=== PATIENT | female | born 1995 | race Two or more races ===

== ENCOUNTER 2017-04-10 10:04 | Emergency (ER) | payer MEDICAID ==
[~2017-04-10] VITALS: Ht 177.8 cm; Wt 109.0 kg
[2017-04-10 10:06] VITALS: BP 122/76
[2017-04-10] MEDS ORDERED: PHENAZOPYRIDINE 200 MG TABLET ONE (10:44)
[2017-04-10 10:45] LABS: HCG UR LOT HCG7060132
[2017-04-10] MEDS ORDERED: PHENAZOPYRIDINE 200 MG TABLET PO ONE (11:00)
[2017-04-10 11:01] LABS: HCG UR OBC PASS
== END 2017-04-10 12:07 | disposition home or self-care (01) ==
LOC: ED 12:01
DX: Z32.01 Encounter for pregnancy test, result positive (principal); N30.90 Cystitis, unspecified without hematuria
CPT/HCPCS: 81001; 81025; 99284

== ENCOUNTER 2017-04-18 07:31 | Emergency (ER) | payer MEDICAID ==
[~2017-04-18] VITALS: Ht 177.8 cm; Wt 108.5 kg
[2017-04-18] MEDS ORDERED: SODIUM CHLORIDE 0.9% 1,000ML IVBOLUS ONE (08:00)
[2017-04-18] MEDS ORDERED: SODIUM CHLORIDE FLUSH 10ML SYR IVF ONE (08:00)
[2017-04-18] MEDS ORDERED: ONDANSETRON 2MG/ML, 2ML IVPush ONE (08:00)
[2017-04-18] MEDS ORDERED: FAMOTIDINE 20 MG/2 ML IVP ONE (08:00)
[2017-04-18] MEDS ORDERED: ONDA4TAB10 PO (08:05)
[2017-04-18 08:14] LABS: BASOPHILS # (AUTO) 0.01 x10^3/uL (0-0.3); BASOPHILS % (AUTO) 0 % (0-1); EOSINOPHILS # (AUTO) 0.02 x10^3/uL (0-0.8); EOSINOPHILS % (AUTO) 0 % (1-7); LYMPHOCYTES # (AUTO) 0.96 x10^3/uL (1-6.1); LYMPHOCYTES % (AUTO) 9 % (22-44); MD NO; MEAN CORPUSCULAR HEMOGLOBIN 27.9 pg (27.0-34.8); MEAN CORPUSCULAR VOLUME 82.1 fL (80-100); MEAN PLATELET VOLUME 8.9 fL (7.4-10.4); MONOCYTES # (AUTO) 0.37 x10^3/uL (0-1.4); MONOCYTES % (AUTO) 3 % (2-9); NEUTROPHILS # (AUTO) 9.75 x10^3/uL (1.8-8.0); NEUTROPHILS % (AUTO) 88 % (42-75); PLATELET COUNT 192 x10^3/uL (130-400); RED BLOOD COUNT 4.43 x10^6/uL (3.82-5.3); RED CELL DISTRIBUTION WIDTH 13.7 % (9.6-15.2)
[2017-04-18 08:23] LABS: ALANINE AMINOTRANSFERASE 19 U/L (12-78); ALBUMIN 3.3 g/dL (3.4-5.0); ANION GAP 6 mmol/L (5-15); CALCIUM 8.9 mg/dL (8.5-10.1); CHLORIDE 108 mmol/L (98-107); CREATININE 0.46 mg/dL (0.55-1.02)
[2017-04-18 08:40] LABS: ALKALINE PHOSPHATASE 48 U/L (45-117); BILIRUBIN,TOTAL 0.6 mg/dL (0.2-1.0); TOTAL PROTEIN 7.7 g/dL (6.4-8.2)
[2017-04-18] MEDS ORDERED: METOCLOPRAMIDE 5 MG/ML, 2ML ONE (09:13)
[2017-04-18] MEDS ORDERED: ONDANSETRON 2MG/ML, 2ML ONE (09:14)
[2017-04-18] MEDS ORDERED: FAMOTIDINE 20 MG/2 ML ONE (09:34)
[2017-04-18 09:43] LABS: MICROSCOPIC INDICATED
[2017-04-18 10:03] LABS: CULTURE INDICATED? YES
[2017-04-18 10:12] VITALS: BP 117/62
== END 2017-04-18 10:16 | disposition home or self-care (01) ==
LOC: ED 08:15
DX: O26.611 Liver and biliary tract disorders in pregnancy, first trimester (principal); K80.20 Calculus of gallbladder without cholecystitis without obstruction; O99.331 Smoking (tobacco) complicating pregnancy, first trimester; F17.210 Nicotine dependence, cigarettes, uncomplicated; Z3A.12 12 weeks gestation of pregnancy
CPT/HCPCS: 36415; 76700; 76801; 80053; 81001; 83690; 84702; 85025; 87086; 96361; 96374; 96375; 99285; J2405; J7030; S0028

== ENCOUNTER 2017-04-21 01:02 | Emergency (ER) | payer MEDICAID ==
[~2017-04-21] VITALS: Ht 175.3 cm; Wt 108.0 kg
[~2017-04-21 01:02] MED LIST: ONDA4TAB10 PO
[2017-04-21 01:04] VITALS: BP 134/78
[2017-04-21 04:38] LABS: RAPID INFLUENZA A Negative (Negative); RAPID INFLUENZA B Negative (Negative)
[2017-04-21 04:39] LABS: MICROSCOPIC NOT IND
[2017-04-21 04:41] LABS: CULTURE INDICATED? NO
== END 2017-04-21 06:08 | disposition home or self-care (01) ==
LOC: ED 05:57
DX: O26.891 Other specified pregnancy related conditions, first trimester (principal); R10.84 Generalized abdominal pain; R05 Cough; O99.351 Diseases of the nervous system complicating pregnancy, first trimester; G62.9 Polyneuropathy, unspecified; Z3A.13 13 weeks gestation of pregnancy; Z87.19 Personal history of other diseases of the digestive system
CPT/HCPCS: 71045; 81003; 87081; 87147; 87400; 87880

== ENCOUNTER 2017-05-14 00:11 | Emergency (ER) | payer MEDICAID ==
[~2017-05-14] VITALS: Ht 175.3 cm; Wt 110.9 kg
[2017-05-14 01:32] VITALS: BP 120/48
[2017-05-14 01:45] LABS: CLUE CELLS NONE SEEN (NONE SEEN); WET PREP WBCS FEW (FEW)
[2017-05-14 02:25] LABS: MICROSCOPIC AUTO
[2017-05-14 02:26] LABS: CULTURE INDICATED? YES
== END 2017-05-14 02:55 | disposition home or self-care (01) ==
LOC: ED 00:34
DX: O23.592 Infection of other part of genital tract in pregnancy, second trimester (principal); O26.892 Other specified pregnancy related conditions, second trimester; O99.332 Smoking (tobacco) complicating pregnancy, second trimester; G62.9 Polyneuropathy, unspecified; Z3A.15 15 weeks gestation of pregnancy
CPT/HCPCS: 81001; 87086; 87106; 87210; 87808; 99284

== ENCOUNTER 2017-06-09 17:44 | Emergency (ER) | payer MEDICAID ==
[~2017-06-09] VITALS: Ht 175.3 cm; Wt 116.1 kg
[2017-06-09 18:48] LABS: MICROSCOPIC INDICATED
[2017-06-09 18:49] LABS: BASOPHILS % (AUTO) 0 % (0-1); EOSINOPHILS # (AUTO) 0.03 x10^3/uL (0-0.8); EOSINOPHILS % (AUTO) 0 % (1-7); LYMPHOCYTES # (AUTO) 1.16 x10^3/uL (1-6.1); LYMPHOCYTES % (AUTO) 7 % (22-44); MD NO; MEAN CORPUSCULAR HEMOGLOBIN 27.9 pg (27.0-34.8); MEAN CORPUSCULAR VOLUME 82.3 fL (80-100); MONOCYTES # (AUTO) 0.63 x10^3/uL (0-1.4); MONOCYTES % (AUTO) 4 % (2-9); NEUTROPHILS # (AUTO) 15.16 x10^3/uL (1.8-8.0); NEUTROPHILS % (AUTO) 89 % (42-75); PLATELET COUNT 212 x10^3/uL (130-400); RED BLOOD COUNT 3.94 x10^6/uL (3.82-5.3); RED CELL DISTRIBUTION WIDTH 13.1 % (9.6-15.2)
[2017-06-09 18:59] LABS: ALANINE AMINOTRANSFERASE 11 U/L (12-78); ANION GAP 6 mmol/L (5-15); CALCIUM 8.3 mg/dL (8.5-10.1); CHLORIDE 106 mmol/L (98-107); CREATININE 0.57 mg/dL (0.55-1.02)
[2017-06-09 19:00] LABS: CULTURE INDICATED? YES
[2017-06-09 19:05] LABS: ALKALINE PHOSPHATASE 54 U/L (45-117); BILIRUBIN,TOTAL 0.3 mg/dL (0.2-1.0); TOTAL PROTEIN 7.5 g/dL (6.4-8.2)
[2017-06-09 19:06] LABS: BILIRUBIN, DIRECT < 0.1 mg/dL (0.1-0.2); BILIRUBIN,INDIRECT 0.2 mg/dL (0.0-2.0)
[2017-06-09] MEDS ORDERED: CEFTRIAXONE PMX 1GM/50ML 50 ML IV ONE (19:30)
[2017-06-09] MEDS ORDERED: SODIUM CHLORIDE 0.9% 1,000ML IVBOLUS ONE (19:30)
[2017-06-09] MEDS ORDERED: ONDANSETRON 2MG/ML, 2ML ONE (19:35)
[2017-06-09] MEDS ORDERED: MORPHINE SULFATE 4 MG/ML, 1ML ONE (19:35)
[2017-06-09] MEDS ORDERED: CEFTRIAXONE PMX 1GM/50ML 50 ML ONE (19:44)
[2017-06-09] MEDS ORDERED: MORPHINE SULFATE 4 MG/ML, 1ML IVPush ONE (20:00)
[2017-06-09] MEDS ORDERED: ONDANSETRON 2MG/ML, 2ML IVPush ONE (20:00)
[2017-06-09 20:18] LABS: MICROSCOPIC INDICATED
[2017-06-09 20:26] LABS: CULTURE INDICATED? YES
[2017-06-09 21:48] VITALS: BP 111/74
== END 2017-06-09 22:49 | disposition home or self-care (01) ==
LOC: ED 21:20
DX: O99.612 Diseases of the digestive system complicating pregnancy, second trimester (principal); O23.02 Infections of kidney in pregnancy, second trimester; O26.892 Other specified pregnancy related conditions, second trimester; O99.332 Smoking (tobacco) complicating pregnancy, second trimester; K59.00 Constipation, unspecified; N89.8 Other specified noninflammatory disorders of vagina; F17.200 Nicotine dependence, unspecified, uncomplicated; Z3A.19 19 weeks gestation of pregnancy
CPT/HCPCS: 36415; 76770; 80048; 80076; 81001; 82040; 83605; 83690; 84145; 85025; 87040; 87077; 87086; 87186; 96365; 96366; 96375; 99285; J0696; J2405; J7030

== ENCOUNTER 2017-10-20 00:54 | Outpatient (CLI) | payer SELFPAY ==
[2017-10-20 01:07] VITALS: BP 128/76
[2017-10-20 02:02] LABS: AMPHETAMINE SCREEN, URINE Negative (Negative); BARBITURATE SCREEN, URINE Negative (Negative); BENZODIAZEPINE SCREEN, URINE Negative (Negative); CANNABINOID SCREEN, URINE Positive (Negative); COCAINE SCREEN, URINE Negative (Negative); METHADONE SCREEN, URINE Negative (Negative); OPIATE SCREEN, URINE Negative (Negative)
[2017-10-20 02:11] LABS: MICROSCOPIC INDICATED
== END 2017-10-20 02:37 | disposition home or self-care (01) ==
LOC: LDOP 00:54
PROVIDERS: ATTEND Obstetrics & Gynecology Female Pelvic Medicine and Reconstructive Surgery
DX: O62.9 Abnormality of forces of labor, unspecified (principal); O26.893 Other specified pregnancy related conditions, third trimester; R10.9 Unspecified abdominal pain; Z3A.38 38 weeks gestation of pregnancy
CPT/HCPCS: 59025; 80307; 81001; 87086; 99211; G0463

== ENCOUNTER 2017-10-20 23:52 | Outpatient (CLI) | payer SELFPAY ==
[~2017-10-20] VITALS: Ht 177.8 cm; Wt 113.0 kg
== END 2017-10-21 01:54 | disposition home or self-care (01) ==
LOC: LDOP 23:52
PROVIDERS: ATTEND Obstetrics & Gynecology Female Pelvic Medicine and Reconstructive Surgery
DX: O26.893 Other specified pregnancy related conditions, third trimester (principal); O62.9 Abnormality of forces of labor, unspecified; R10.9 Unspecified abdominal pain; Z3A.38 38 weeks gestation of pregnancy
CPT/HCPCS: 59025; 99211; G0463

== ENCOUNTER 2020-03-20 11:10 | Emergency (ER) | payer MEDICAID ==
[~2020-03-20] VITALS: Ht 172.7 cm; Wt 127.0 kg
--- NOTE | 2020-03-20 11:57 | NUR ---
PT C/O LUQ ABD PAIN. 19 WEEKS PREG. PT STATES HAD GALL BLADDER PROBLEMS DURING HER LAST , BUT NO MORE UNTIL NOW. PT CONNECTED TO MONITORING. WARM BLANKET PROVIDED. PT SITTING ON [employer] PLAYING ON PHONE.
--- NOTE | 2020-03-20 12:28 | NUR ---
PT AMBULATED TO RESTROOM WITH STEADY GAIT TO PROVIDE URINE SAMPLE. UA COLLECTED AND SENT TO LAB. US AND LAB AT BEDSIDE.
[2020-03-20 12:45] LABS: MICROSCOPIC INDICATED
[2020-03-20 12:49] LABS: BASOPHILS % (AUTO) 0 % (0-1); EOSINOPHILS % (AUTO) 0 % (1-7); LYMPHOCYTES % (AUTO) 12 % (22-44); MEAN CORPUSCULAR HEMOGLOBIN 26.8 pg (27.0-34.8); MEAN PLATELET VOLUME 9.1 fL (7.4-10.4); MONOCYTES % (AUTO) 5 % (2-9); NEUTROPHILS % (AUTO) 82 % (42-75); PLATELET COUNT 205 x10^3/uL (130-400); RED BLOOD COUNT 4.01 x10^6/uL (3.82-5.3); RED CELL DISTRIBUTION WIDTH 13.1 % (9.6-15.2)
[2020-03-20 12:50] LABS: MD NO
[2020-03-20 12:55] LABS: ALANINE AMINOTRANSFERASE 9 U/L (12-78); ALBUMIN 2.6 g/dL (3.4-5.0); ANION GAP 4 mmol/L (5-15); CALCIUM 8.4 mg/dL (8.5-10.1); CHLORIDE 109 mmol/L (98-107); CREATININE 0.57 mg/dL (0.55-1.02)
[2020-03-20 13:13] LABS: ALKALINE PHOSPHATASE 57 U/L (45-117); BILIRUBIN,TOTAL 0.3 mg/dL (0.2-1.0); TOTAL PROTEIN 7.2 g/dL (6.4-8.2)
[2020-03-20] MEDS ORDERED: LIDOCAINE-MPF 1%, 2ML ONE (13:51)
[2020-03-20] MEDS ORDERED: CEFTRIAXONE 1,000 MG ONE (13:52)
[2020-03-20 14:02] VITALS: BP 110/58
[2020-03-20] MEDS ORDERED: CEFTRIAXONE 1,000 MG IM ONE (14:30)
== END 2020-03-20 14:04 | disposition home or self-care (01) ==
LOC: ED 12:07
DX: O23.42 Unspecified infection of urinary tract in pregnancy, second trimester (principal); O99.612 Diseases of the digestive system complicating pregnancy, second trimester; K80.20 Calculus of gallbladder without cholecystitis without obstruction; Z3A.18 18 weeks gestation of pregnancy
CPT/HCPCS: 36415; 76700; 76805; 80053; 81001; 83690; 84702; 85025; 86901; 87086; 96372; 99285; J0696